=== PATIENT | male | born 1960 | race Caucasian/White ===

== ENCOUNTER 2021-01-28 06:25 | Day surgery (SDC) | payer BC ==
[~2021-01-28] VITALS: Ht 182.9 cm; Wt 73.0 kg
--- NOTE | 2021-01-28 08:08 | NUR ---
01/28/21 0808 Sandy Hernandez 0803- PT ARRIVES TO PACU AWAKE AND TALKING. PT REPORTS NO PAIN OR NAUSEA. RESP EVEN AND UNLABORED. OXYGEN SAT HIGH 90'S ON 3L VIA NC.
--- NOTE | 2021-01-28 08:36 | NUR ---
PT ALERT, ORIENTED AND SEEMS PREPARED FOR FIRST SCOPE. PT ADMITTED HE SHOULD HAVE HAD THIS 10 YRS AGO. ALL QUESTIONS ASKED ANSWERED. PT REQUESTED PRAYER, STATED HE HAD ALREADY BEEN PRAYING FOR YRS! WILL FOLLOW
--- NOTE | 2021-01-28 14:55 | OR ---
[facility] [address], [place] [address] Signed DATE OF OPERATION: 01/28/2021 SURGEON: Romy Lees MD PREOPERATIVE DIAGNOSIS: Colon screening. POSTOPERATIVE DIAGNOSIS: Sigmoid and left-sided diverticula. No evidence of polyps. PROCEDURE: Total colonoscopy to cecum. ANESTHESIA: Intravenous sedation, fentanyl 100 mcg and Versed 8 mg. INDICATION: This 60-year-old white man is a patient of Rashaun Guerra and has never had colon evaluation in the past. He has no symptoms of diarrhea, constipation, or bleeding and has no family history of colon cancer. He has never undergone colon evaluation in the past. He is admitted at this time to undergo colonoscopy. He understands the risks of bleeding, infection, and perforation. FINDINGS: The prep was excellent. Complete colonoscopy was undertaken to the cecum. The prostate was normal. There were numerous diverticula of the sigmoid and left colon, but no sign of stricture or other abnormality. There was no sign of polyps or colitis. DESCRIPTION OF PROCEDURE: The patient was brought to the endoscopy suite and placed in lateral decubitus position, given intravenous sedation to the point of slurred speech and nystagmus. Digital rectal examination showed a normal prostate. The Olympus video colonoscope was passed in the rectum and manipulated throughout the colon noting numerous diverticula of the sigmoid and left colon. The scope was ultimately passed to the cecum. The ileocecal valve and appendiceal orifice were normal. The scope was withdrawn from that point and examination throughout showed no sign of abnormality specifically no colitis or polyps. There were diverticula as mentioned. Retroflexed view of the rectum showed minimal internal hemorrhoidal changes. The scope was removed. The patient was taken to the recovery room in good condition. Electronically Signed By: ROMY LEES MD 01/28/21 1455 PATIENT NAME: KRISHNA FAIRCHILD OPERATIVE REPORT DATE OF : 60 REPORT #: [id number] PHYSICIAN: ROMY LEES MD PCP: RASHAUN GUERRA REPORT IS CONFIDENTIAL AND NOT TO BE RELEASED WITHOUT AUTHORIZATION [facility] [address] [place] [id number] Signed CONCLUDING DIAGNOSIS: Diverticulosis, no evidence of polyps. PLAN: Recommend high-fiber diet and recommend a repeat colonoscopy in 10 years sooner if clinically indicated. MD [employer]/MODL /[id number] cc: Rashaun Guerra PA-C Copies: RASHAUN GUERRA ~ Electronically Signed By: ROMY LEES MD 01/28/21 1455 PATIENT NAME: KRISHNA FAIRCHILD OPERATIVE REPORT DATE OF : 60 REPORT #: [id number] PHYSICIAN: ROMY LEES MD PCP: RASHAUN GUERRA PAC REPORT IS CONFIDENTIAL AND NOT TO BE RELEASED WITHOUT AUTHORIZATION
== END 2021-01-28 08:43 | disposition home or self-care (01) ==
LOC: OPS 06:25 → DS 06:25 → OPS 06:45
PROVIDERS: ATTEND Surgery
PROC: 0DJD8ZZ Inspection of Lower Intestinal Tract, Via Natural or Artificial Opening Endoscopic (ICD-10-PCS; principal; 2021-01-28 06:45)
DX: Z12.11 Encounter for screening for malignant neoplasm of colon (principal); K57.90 Diverticulosis of intestine, part unspecified, without perforation or abscess without bleeding
CPT/HCPCS: 99153; G0500; J2250; J3010; J7121